=== PATIENT | male | born 1980 | race Caucasian/White ===

== ENCOUNTER 2021-10-12 21:45 | Emergency (ER) | payer OTHER, BC ==
[~2021-10-12] VITALS: Ht 190.5 cm; Wt 154.2 kg
[2021-10-12 21:54] VITALS: BP 134/82
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
[2021-10-12 23:39] VITALS: BP 54/90
--- NOTE | 2021-10-12 23:42 | NUR ---
IV DC'D TIP INTACT, NO BLEEDING
== END 2021-10-12 23:45 | disposition home or self-care (01) | DRG 392 ==
LOC: ER 21:45 → EDBD 21:45 → ER 23:45
DX: K21.9 Gastro-esophageal reflux disease without esophagitis (principal); Z90.49 Acquired absence of other specified parts of digestive tract; S20.219A Contusion of unspecified front wall of thorax, initial encounter; V64.5XXA Driver of heavy transport vehicle injured in collision with heavy transport vehicle or bus in traffic accident, initial encounter; Y93.89 Activity, other specified; Y92.89 Other specified places as the place of occurrence of the external cause; Y99.8 Other external cause status
CPT/HCPCS: 71260; 74177; 99285; Q9965